=== PATIENT | female | born 1995 | race African-American/Black ===

== ENCOUNTER 2023-07-16 12:54 | Emergency (ER) | payer OTHER, SELFPAY ==
[2023-07-16 13:05] VITALS: BP 136/116; PULSE 78; RESP 20; TEMP 36.2; O2SAT 100
--- NOTE | 2023-07-16 13:54 | ED.ANIMALBIT ---
HPI - Animal Bite General Chief Complaint: Animal Bite Stated Complaint: dog bite Time Seen by Provider: 07/16/23 13:15 History of Present Illness HPI narrative: 28-year-old female presenting to the emergency department for evaluation after receiving a dog bite to her right hand. 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 While delivering packages a dog emerged from the house and bit her right hand. Patient states she is unsure of her tetanus status. Patient does have an injury to her right middle finger at the nail bed with no repair needed. Patient also has a abrasion to the palmar surface of the 5th finger. Related Data Allergies Allergy/AdvReac Type Severity Reaction Status Date / Time No Known Allergies Allergy Verified 07/16/23 13:34 Review of Systems Review of Systems: All systems reviewed & are unremarkable except as noted in HPI and below Exam Narrative: APPEARANCE: Well appearing, no pain, no distress, well-nourished. HEAD: normocephalic, atraumatic. EYES: PERRLA/EOMI, conjunctivae clear. NOSE: Normal no drainage NECK: Supple. No adenopathy, no masses. RESPIRATORY: Airway patent, respirations nonlabored. Clear to auscultation bilaterally, no rales, rhonchi, wheezing. CARDIOVASCULAR: Regular rate and rhythm without murmurs rubs or gallops. ABDOMINAL: Soft, nontender, nondistended, normal bowel sounds MUSCULOSKELETAL: Moves all extremities. Strength/ROM intact, No edema, No calf tenderness. NEURO: Alert. Cranial nerves II through XII intact. Grossly intact SKIN: Multiple superficial puncture wounds to right hand with injury to the nail bed on the right middle finger and at the DIP the palmar surface the 5th finger. No suture repair required Course Vital Signs Vital signs: Vital Signs Temperature 97.2 F L 07/16/23 13:05 Pulse Rate 78 07/16/23 13:05 Respiratory Rate 20 07/16/23 13:05 Blood Pressure 136/116 H 07/16/23 13:05 Pulse Oximetry 100 07/16/23 13:05 Oxygen Delivery Room Air 07/16/23 13:05 Temperature 97.2 F L 07/16/23 13:05 Pulse Rate 69 07/16/23 14:41 Respiratory Rate 16 07/16/23 14:41 Blood Pressure 112/72 07/16/23 14:41 Pulse Oximetry 100 07/16/23 14:41 Oxygen Delivery Room Air 07/16/23 13:05 MDM - Animal Bite MDM Narrative Medical decision making narrative: 28-year-old female presenting ED for evaluation injuries after a dog bite. No suture repair was needed. Patient was started on Augmentin Emergency Department we discharged home with Augmentin. Patient's tetanus update in the emergency department. The dog is known. Differential Diagnosis Differential diagnosis: Likely bite by animal, dog bite and rabies contact Discharge Plan Discharge Clinical Impression: Dog bite Patient Disposition: Home, Self-Care Condition: Stable Instructions: Antibiotic Form, Animal Bite (ED) Additional Instructions: Tylenol and ibuprofen for pain control. Antibiotic as directed until completed. Have close follow-up with your primary care physician. Prescriptions: New amoxicillin-pot clavulanate 875-125 mg tablet 1 tablet PO Q12H Qty: 14 0RF Follow-up/Referrals: PHYSICIAN,ACCOUNTING SOFTWARE SPECIALIST [Non-Staff] -
[2023-07-16] MEDS: IBUPROFEN 600 MG TABLET PO (14:01)
[2023-07-16] MEDS: AMOXICILLIN/CLAVULANATE K 875-125 MG TAB 1 TABLET PO (14:01)
[2023-07-16] MEDS: TETANUS,DIPHTHERIA,AC PERTUSSIS ADULT (0.5 ML) BOOSTRIX IM (14:01)
[2023-07-16] MEDS: HYDROcodone/acetaminophen (*CRX) 5-325 MG TABLET 1 TAB PO (14:01)
[2023-07-16] MEDS: Please add drug allergy info to patient profile. 1 EACH XX (14:04)
[2023-07-16 14:41] VITALS: BP 112/72; PULSE 69; RESP 16; O2SAT 100
== END 2023-07-16 14:42 | disposition home or self-care (01) ==
PROVIDERS: Emergency Provider Emergency Medicine
DX: S61.352A Open bite of right middle finger with damage to nail, initial encounter (principal); Z23 Encounter for immunization; W54.0XXA Bitten by dog, initial encounter
CPT/HCPCS: 90471; 90715; 99283; A9270